=== PATIENT | female | born 1990 | race Caucasian/White ===

== ENCOUNTER 2016-09-12 12:05 | Emergency (ER) | payer OTHER ==
--- NOTE | 2016-09-12 13:55 | ERPHSYRPT ---
- History of Present Illness Time Seen by Provider: 09/12/16 13:45 Source: patient Exam Limitations: no limitations Patient Subjective Stated Complaint: fine rash over arms and chest for two weeks. Triage Nursing Assessment: fine red rash noted to arms and chest Physician History: The patient is a 26-year-old female who complains of a rash that began 2 weeks ago on her foot and ankle that has resolved. She had a rash also on the back of her hand. This is also gotten better. She now states that she has a rash on her sides of her back. She says that her forearms her getting the rash as well. Timing/Duration: week(s) (2), gradual onset, improved Quality: itchy Severity: moderate Location: torso, hands, feet Possible Causes: no cause identified Modifying Factors: Improves With: calamine lotion Allergies/Adverse Reactions: No Known Drug Allergies Allergy (Unverified 09/12/16 13:17) Home Medications: Bupropion HCl 150 mg Sr [Wellbutrin SR 150 MG] 150 mg PO DAILY 09/12/16 [ History] Buspirone HCl [Buspar] 10 mg PO BID 09/12/16 [History] Hx Tetanus, Diphtheria Vaccination/Date Given: No Hx Influenza Vaccination/Date Given: Yes Hx Pneumococcal Vaccination/Date Given: No - Review of Systems Constitutional: No Fever, No Chills Eyes: No Symptoms Ears, Nose, & Throat: No Symptoms Respiratory: No Cough, No Dyspnea Cardiac: No Chest Pain, No Edema, No Syncope Abdominal/Gastrointestinal: No Abdominal Pain, No Nausea, No Vomiting, No Diarrhea Genitourinary Symptoms: No Dysuria Musculoskeletal: No Back Pain, No Neck Pain Skin: Rash Neurological: No Dizziness, No Focal Weakness, No Sensory Changes Psychological: No Symptoms Endocrine: No Symptoms Hematologic/Lymphatic: No Symptoms Immunological/Allergic: No Symptoms All Other Systems: Reviewed and Negative - Past Medical History Pertinent Past Medical History: Yes Psycho-Social History: Anxiety - Past Surgical History Past Surgical History: No - Social History Smoking Status: Never smoker Exposure to second hand smoke: No Drug Use: none Patient Lives Alone: No - Female History Hx Last Menstrual Period: 08/16/16 - Nursing Vital Signs Nursing Vital Signs: Initial Vital Signs Temperature 98.6 F Temperature Source Oral Pulse Rate 93 Respiratory Rate 16 Blood Pressure [Left Arm] 111/62 Blood Pressure [Right Arm] 111/62 Pain Intensity 0 - Physical Exam General Appearance: no apparent distress, alert Eye Exam: PERRL/EOMI, eyes nml inspection Ears, Nose, Throat Exam: normal ENT inspection, pharynx normal, moist mucous membranes Neck Exam: normal inspection, non-tender, supple, full range of motion Respiratory Exam: normal breath sounds, lungs clear, No respiratory distress Cardiovascular Exam: regular rate/rhythm, normal heart sounds Gastrointestinal/Abdomen Exam: soft, mass, No tenderness Pelvic Exam: not done Rectal Exam: not done Back Exam: normal inspection, normal range of motion, No CVA tenderness, No vertebral tenderness Extremity Exam: normal inspection, normal range of motion Neurologic Exam: alert, oriented x 3, cooperative, normal mood/affect, sensation nml, No motor deficits Skin Exam: rash (There is a healed rash to his obvious excoriations on the foot and hand. There is some mild fine rash to the lateral edges of the back. No rashes noted on the forearms.) SpO2 Interpretation: normal SpO2: 98 Oxygen Delivery: Room Air - Departure Time of Disposition: 14:00 Departure Disposition: Home Clinical Impression: Rash Condition: Stable Critical Care Time: No Additional Instructions: You have a rash with the cause is yet to be identified. Take prednisone 60 mg daily for 5 days. Follow up next week with your primary medical doctor if the condition hasn't resolved. Prescriptions: Prednisone 10 mg [Deltasone 10 mg] 60 mg PO UD #30 tablet
[2016-09-12 14:00] VITALS: BP 117/68; PULSE 98
[2016-09-12 14:01] VITALS: O2SAT 98
== END 2016-09-12 14:26 | disposition home or self-care (01) ==
LOC: ED 12:05
DX: R21 Rash and other nonspecific skin eruption (principal)
CPT/HCPCS: 99282

== ENCOUNTER 2017-12-28 16:15 | Emergency (ER) | payer OTHER ==
--- NOTE | 2017-12-28 17:15 | ERPHSYRPT ---
- History of Present Illness Time Seen by Provider: 12/28/17 17:03 Source: patient Exam Limitations: no limitations Patient Subjective Stated Complaint: alert and oriented. able to ambulate to room without problem. has sciatica and has been being treated by chiropractor since may. increased pain . states swelling at lower back. unanable to see any swelling at this time. denies urinary symptoms. able to ambulate with no difficulty. Triage Nursing Assessment: alert and oriented. able to ambulate to room without problem. has sciatica and has been being treated by chiropractor since may. increased pain . states swelling at lower back. unanable to see any swelling at this time. denies urinary symptoms. able to ambulate with no difficulty. Physician History: The patient is a 27-year-old female complaining of right-sided low back pain since May. She has been to see the chiropractor several times with some relief but today it is hurting again. It has been hurting worse for a few days. She denies numbness or tingling. She denies problems with urination or defecation. She is supplied cold to the area with some relief. She was late for an appointment with the nurse practitioner today and was unable to be seen. Timing/Duration: gradual onset, worse, other (7 months) Method of Injury: unknown Quality: aching Back Pain Radiation: buttocks Severity of Pain-Max: moderate Severity of Pain-Current: moderate Modifying Factors: Improves With: cold therapy Associated Symptoms: lower back pain, muscle spasms, No urinary incontinence, No loss of bowel control, No problems urinating, No numbness in legs/feet, No sensory/motor loss Previous symptoms: no prior history Allergies/Adverse Reactions: No Known Drug Allergies Allergy (Unverified 12/28/17 16:50) Home Medications: Buspirone HCl [Buspar] 10 mg PO BID 09/12/16 [History] Amoxicillin 500 mg PO BID 12/28/17 [History] Hx Tetanus, Diphtheria Vaccination/Date Given: No Hx Influenza Vaccination/Date Given: Yes Hx Pneumococcal Vaccination/Date Given: No Immunizations Up to Date: Yes - Review of Systems Constitutional: No Fever, No Chills Eyes: No Symptoms Ears, Nose, & Throat: No Symptoms Respiratory: No Cough, No Dyspnea Cardiac: No Chest Pain, No Edema, No Syncope Abdominal/Gastrointestinal: No Abdominal Pain, No Nausea, No Vomiting, No Diarrhea Genitourinary Symptoms: No Dysuria Musculoskeletal: Back Pain Skin: No Rash Neurological: No Dizziness, No Focal Weakness, No Sensory Changes Psychological: No Symptoms Endocrine: No Symptoms Hematologic/Lymphatic: No Symptoms Immunological/Allergic: No Symptoms All Other Systems: Reviewed and Negative - Past Medical History Pertinent Past Medical History: Yes Neurological History: Other Psycho-Social History: Anxiety Other Medical History: sciatica - Past Surgical History Past Surgical History: Yes - Social History Smoking Status: Never smoker Exposure to second hand smoke: No Drug Use: none Patient Lives Alone: No - Female History Hx Last Menstrual Period: 2 weeks Hx Now: No - Nursing Vital Signs Nursing Vital Signs: Initial Vital Signs Temperature 97.8 F 12/28/17 16:42 Pulse Rate 86 12/28/17 16:42 Respiratory Rate 16 12/28/17 16:42 Blood Pressure 156/80 12/28/17 16:42 O2 Sat by Pulse Oximetry 98 12/28/17 16:42 Pain Scale Pain Intensity [Lower Back] 6 Pain Intensity 6 - Physical Exam General Appearance: no apparent distress, alert Eye Exam: PERRL/EOMI, eyes nml inspection Ears, Nose, Throat Exam: normal ENT inspection Neck Exam: normal inspection, non-tender, supple, full range of motion, No meningismus, No midline tenderness Respiratory Exam: normal breath sounds, lungs clear, No respiratory distress Cardiovascular Exam: regular rate/rhythm, normal heart sounds Gastrointestinal Exam: soft, No tenderness, No mass Pelvic Exam: not done Rectal Exam: not done Back Exam: muscle spasm (lumbar right paraspinous muscle) Extremity Exam: normal inspection, normal range of motion, No calf tenderness, No pedal edema Neurologic Exam: alert, oriented x 3, cooperative, 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 You were given Toradol 60 mg and Decadron 10 mg by IM in the ER. Take Flexeril 5 mg every 8 hours as needed for relief. Apply ice to the area for 10-15 minutes 2-3 times a day as needed. Follow-up with your primary medical doctor as needed. Prescriptions: Cyclobenzaprine HCl [Flexeril] 5 mg PO Q8H PRN PRN #10 tablet PRN Reason: Pain
[2017-12-28] MEDS ORDERED: TORAdol 30 mg Injection IM ONE (17:19)
[2017-12-28] MEDS ORDERED: DECADRON 10MG INJ. IM ONE (17:19)
[2017-12-28] MEDS ORDERED: DECADRON 10MG INJ. ONE (17:22)
[2017-12-28] MEDS ORDERED: TORAdol 30 mg Injection ONE (17:22)
[2017-12-28 17:35] VITALS: BP 113/68; PULSE 97; O2SAT 100
== END 2017-12-28 17:46 | disposition home or self-care (01) ==
LOC: ED 16:15
DX: M62.830 Muscle spasm of back (principal); M54.5 Low back pain
CPT/HCPCS: 96372; 99284; J1100; J1885

== ENCOUNTER 2018-01-27 13:10 | Emergency (ER) | payer OTHER ==
[2018-01-27] MEDS ORDERED: GI COCKTAIL 45 ML (Maalox/Lidocaine) PO ONE (13:43)
[2018-01-27] MEDS ORDERED: XYLOCAINE HCl Viscous ONE (13:57)
[2018-01-27] MEDS ORDERED: MAALOX ES 30 ML UNIT DOSE ONE (13:58)
--- NOTE | 2018-01-27 14:06 | ERPHSYRPT ---
- History of Present Illness Time Seen by Provider: 01/27/18 13:25 Historian: patient Exam Limitations: no limitations Patient Subjective Stated Complaint: abdominal pain to left upper quad and right flank. denies urinary symptoms. non radiating pain. has hx reflux. Triage Nursing Assessment: abdomen soft . reflux x couple of months.. this pain x 2 days. states feels pressure. denies urinary symptoms. denies diarrhea. Physician History: 27 y/o white female presents with left upper quad abd pain intermittently for last several days. she feels bloated and nauseated at times. she has never had abd surgeries. she also has had intermittent right flank pain. denies v/d. pt was placed on voltaren 3 weeks ago by pcp. Timing/Duration: day(s) (several) Quality: aching (left upper quad), fullness, pressure Abdominal Pain Onset Location: LUQ, epigastric Pain Radiation: no radiation Severity of Pain-Max: mild Severity of Pain-Current: mild Modifying Factors: Improves With: nothing Associated Symptoms: back (right flank), nausea, No chest pain, No diaphoresis, No diarrhea, No fatigue, No headache, No heartburn, No loss of appetite, No neck pain, No shortness of breath, No syncope, No vomiting Previous symptoms: no prior history Allergies/Adverse Reactions: No Known Drug Allergies Allergy (Unverified 12/28/17 16:50) Home Medications: Buspirone HCl [Buspar] 10 mg PO BID 09/12/16 [History] Amoxicillin 500 mg PO BID 12/28/17 [History] Hx Tetanus, Diphtheria Vaccination/Date Given: No Hx Influenza Vaccination/Date Given: Yes Hx Pneumococcal Vaccination/Date Given: No - Review of Systems Constitutional: No Symptoms, No Fever, No Chills Eyes: No Symptoms, No Discharge, No Eye Pain, No Vision Changes, No Double Vision Ears, Nose, & Throat: No Symptoms, No Ear Pain, No Nose Congestion, No Throat Pain, No Painful Swallowing, No Stridor Respiratory: No Symptoms, No Cough, No Dyspnea, No Stridor, No Wheezing Cardiac: No Symptoms, No Chest Pain, No Palpitations, No Syncope Abdominal/Gastrointestinal: Abdominal Pain (left upper quad), Nausea, No Vomiting, No Diarrhea, No Constipation Genitourinary Symptoms: Flank Pain (right), No Dysuria, No Frequency, No Hematuria Musculoskeletal: No Neck Pain, No Deformity, No Fall, No Injury Skin: No Symptoms Neurological: No Symptoms, No Dizziness, No Headache Psychological: No Symptoms, No Anxiety, No Depression Endocrine: No Symptoms Hematologic/Lymphatic: No Symptoms Immunological/Allergic: No Symptoms All Other Systems: Reviewed and Negative - Past Medical History Pertinent Past Medical History: Yes Neurological History: Other ENT History: No Pertinent History Cardiac History: No Pertinent History Respiratory History: No Pertinent History Endocrine Medical History: No Pertinent History Musculoskeletal History: No Pertinent History GI Medical History: GERD History: No Pertinent History Psycho-Social History: Anxiety Female Reproductive Disorders: No Pertinent History Other Medical History: sciatica - Past Surgical History Past Surgical History: Yes Neuro Surgical History: No Pertinent History Cardiac: No Pertinent History Respiratory: No Pertinent History Gastrointestinal: No Pertinent History Genitourinary: No Pertinent History Musculoskeletal: No Pertinent History Female Surgical History: No Pertinent History - Social History Smoking Status: Never smoker Exposure to second hand smoke: No Drug Use: none Patient Lives Alone: No - Female History Hx Now: No - Nursing Vital Signs Nursing Vital Signs: Initial Vital Signs Pulse Rate 88 01/27/18 13:24 Respiratory Rate 18 01/27/18 13:24 Blood Pressure 129/78 01/27/18 13:24 O2 Sat by Pulse Oximetry 98 01/27/18 13:24 Pain Scale Pain Intensity 5 - Physical Exam General Appearance: no apparent distress, alert, anxiety Eye Exam: PERRL/EOMI Ears, Nose, Throat Exam: normal ENT inspection, moist mucous membranes Neck Exam: normal inspection, non-tender, supple, full range of motion Respiratory Exam: normal breath sounds, lungs clear, airway intact, No chest tenderness, No respiratory distress, No accessory muscle use, No rhonchi, No wheezing, No stridor Cardiovascular Exam: regular rate/rhythm, normal heart sounds, normal peripheral pulses Gastrointestinal/Abdomen Exam: soft, normal bowel sounds, tenderness (mild left upper quadrant), rebound, No guarding Pelvic Exam: not done Rectal Exam: not done Back Exam: normal inspection, normal range of motion, No CVA tenderness, No vertebral tenderness Extremity Exam: normal inspection, normal range of motion, pelvis stable Neurologic Exam: alert, oriented x 3, cooperative, 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, normal mood/affect, nml cerebellar function, nml station & gait Skin Exam: normal color, warm, dry Lymphatic Exam: No adenopathy SpO2 Interpretation: normal SpO2: 98 Oxygen Delivery: Room Air - Course Nursing assessment & vital signs reviewed: Yes Ordered Tests: Active Orders 24 hr Category Date Time Status Clean Catch Urine Specimen STAT Care 01/27/18 13:43 Active AMYLASE Stat Lab 01/27/18 14:05 Completed CBC W DIFF Stat Lab 01/27/18 14:05 Completed CMP Stat Lab 01/27/18 14:05 Completed HCG,QUALITATIVE URINE Stat Lab 01/27/18 14:05 Completed LIPASE Stat Lab 01/27/18 14:05 Completed UA W/RFX UR CULTURE Stat Lab 01/27/18 14:05 Completed Medication Summary Discontinued Medications Generic Name Dose Route Start Last Admin Trade Name Freq PRN Reason Stop Dose Admin Al Hydrox/Mg Hydrox/Simethicone Confirm 01/27/18 13:58 Maalox Es 30 Ml Unit Dose Administered 01/27/18 13:59 Dose 30 ml .ROUTE .STK-MED ONE Lidocaine HCl Confirm 01/27/18 13:57 Xylocaine Hcl Viscous * Administered 01/27/18 13:58 Dose 15 ml .ROUTE .STK-MED ONE Magnesium Hydroxide 45 ml 01/27/18 13:43 01/27/18 14:03 Gi Cocktail 45 Ml (Maalox/Lidocaine) PO 01/27/18 13:44 45 ml STAT ONE Administration Lab/Rad Data: Laboratory Result Diagrams 01/27/18 14:05 01/27/18 14:05 Laboratory Results 01/27/18 01/27/18 01/27/18 Range/Units 14:05 14:05 14:05 WBC (4.0-10.5) K/mm3 RBC (4.1-5.4) M/mm3 Hgb (12.0-16.0) gm/dl Hct (35-47) % MCV (78-100) fl MCH (26-32) pg MCHC (32-36) g/dl RDW (11.5-14.0) % Plt Count (150-450) K/mm3 MPV (6-9.5) fl Gran % (36.0-66.0) % Eos # (Auto) (0-0.5) Absolute Lymphs (auto) (1.0-4.6) Absolute Monos (auto) (0.0-1.3) Lymphocytes % (24.0-44.0) % Monocytes % (0.0-12.0) % Eosinophils % (0.00-5.0) % Basophils % (0.0-0.4) % Absolute Granulocytes (1.4-6.9) Basophils # (0-0.4) Sodium 139 (137-145) mmol/L Potassium 4.3 (3.5-5.1) mmol/L Chloride 102 (98-107) mmol/L Carbon Dioxide 27 (22-30) mmol/L Anion Gap 14.5 (5-15) MEQ/L BUN 11 (7-17) mg/dL Creatinine 0.63 (0.52-1.04) mg/dL Estimated GFR > 60.0 ML/MIN Glucose 98 (74-106) mg/dL Calcium 10.0 (8.4-10.2) mg/dL Total Bilirubin 0.30 (0.2-1.3) mg/dL AST 15 (14-36) U/L ALT 13 (0-35) U/L Alkaline Phosphatase 50 (38-126) U/L Serum Total Protein 8.0 (6.3-8.2) g/dL Albumin 4.7 (3.5-5.0) g/dL Amylase 69 (30-110) U/L Lipase 54 (23-300) U/L Urine Color COLORLESS (YELLOW) Urine Appearance CLEAR (CLEAR) Urine pH 7.0 (5-6) Ur Specific [place] 1.002 (1.005-1.025) Urine Protein NEGATIVE (Negative) Urine Ketones NEGATIVE (NEGATIVE) Urine Blood NEGATIVE (0-5) Suman/ul Urine Nitrite NEGATIVE (NEGATIVE) Urine Bilirubin NEGATIVE (NEGATIVE) Urine Urobilinogen NEGATIVE (0-1) mg/dL Ur Leukocyte Esterase NEGATIVE (NEGATIVE) Urine WBC (Auto) 0-2 (0-5) /HPF U Epithel Cells (Auto) RARE (FEW) /HPF Urine Mucus (Auto) SLIGHT (NEGATIVE) /HPF Urine Culture Reflexed NO (NO) Urine Glucose NEGATIVE (NEGATIVE) mg/dL Urine HCG, Qual NEGATIVE (Negative) 01/27/18 Range/Units 14:05 WBC 7.0 (4.0-10.5) K/mm3 RBC 4.23 (4.1-5.4) M/mm3 Hgb 12.8 (12.0-16.0) gm/dl Hct 37.9 (35-47) % MCV 89.6 (78-100) fl MCH 30.3 (26-32) pg MCHC 33.8 (32-36) g/dl RDW 12.4 (11.5-14.0) % Plt Count 392 (150-450) K/mm3 MPV 9.0 (6-9.5) fl Gran % 55.0 (36.0-66.0) % Eos # (Auto) 0.24 (0-0.5) Absolute Lymphs (auto) 2.41 (1.0-4.6) Absolute Monos (auto) 0.45 (0.0-1.3) Lymphocytes % 34.7 (24.0-44.0) % Monocytes % 6.5 (0.0-12.0) % Eosinophils % 3.5 (0.00-5.0) % Basophils % 0.3 (0.0-0.4) % Absolute Granulocytes 3.83 (1.4-6.9) Basophils # 0.02 (0-0.4) Sodium (137-145) mmol/L Potassium (3.5-5.1) mmol/L Chloride (98-107) mmol/L Carbon Dioxide (22-30) mmol/L Anion Gap (5-15) MEQ/L BUN (7-17) mg/dL Creatinine (0.52-1.04) mg/dL Estimated GFR ML/MIN Glucose (74-106) mg/dL Calcium (8.4-10.2) mg/dL Total Bilirubin (0.2-1.3) mg/dL AST (14-36) U/L ALT (0-35) U/L Alkaline Phosphatase (38-126) U/L Serum Total Protein (6.3-8.2) g/dL Albumin (3.5-5.0) g/dL Amylase (30-110) U/L Lipase (23-300) U/L Urine Color (YELLOW) Urine Appearance (CLEAR) Urine pH (5-6) Ur Specific [place] (1.005-1.025) Urine Protein (Negative) Urine Ketones (NEGATIVE) Urine Blood (0-5) Suman/ul Urine Nitrite (NEGATIVE) Urine Bilirubin (NEGATIVE) Urine Urobilinogen (0-1) mg/dL Ur Leukocyte Esterase (NEGATIVE) Urine WBC (Auto) (0-5) /HPF U Epithel Cells (Auto) (FEW) /HPF Urine Mucus (Auto) (NEGATIVE) /HPF Urine Culture Reflexed (NO) Urine Glucose (NEGATIVE) mg/dL Urine HCG, Qual (Negative) - Progress Progress: unchanged, re-examined Progress Note: 01/27/18 15:11 pt states she is also taking zantac and protonix. Counseled pt/family regarding: lab results, diagnosis, need for follow-up - Departure Time of Disposition: 15:12 Departure Disposition: Home Clinical Impression: Abdominal pain, Gastritis Condition: Stable Critical Care Time: No Referrals: EDWINA GÓMEZ CRAFT WORKER [Primary Care Provider] - Additional Instructions: avoid fatty, greasy, spicy foods. stop voltaren. follow up with primary doctor for further management including gallbladder ultrasound if indicated.
[2018-01-27 14:15] LABS: BASOPHIL % 0.3 % (0.0-0.4); Basophil (Absolute #) 0.02 (0-0.4); Eosinophil % 3.5 % (0.00-5.0); Eosinophil (Absolute #) 0.24 (0-0.5); Granulocyte Absolute (ANC) 3.83 (1.4-6.9); Hematocrit 37.9 % (35-47); Hemoglobin 12.8 gm/dl (12.0-16.0); Lymphocyte (Absolute #) 2.41 (1.0-4.6); Lymphocytes % 34.7 % (24.0-44.0); Mean Cell Volume 89.6 fl (78-100); Mean Corpuscular Hemoglobin 30.3 pg (26-32); Mean Corpuscular Hgb Concent. 33.8 g/dl (32-36); Monocyte (Absolute #) 0.45 (0.0-1.3); Monocytes % 6.5 % (0.0-12.0); Platelet Count 392 K/mm3 (150-450); Red Blood Count 4.23 M/mm3 (4.1-5.4); Red Cell Distribution Width 12.4 % (11.5-14.0)
[2018-01-27 14:18] LABS: Appearance CLEAR (CLEAR); Bilirubin NEGATIVE (NEGATIVE); Blood NEGATIVE Ery/ul (0-5); Glucose NEGATIVE (NEGATIVE); Ketones NEGATIVE (NEGATIVE); Leukocyte Esterase NEGATIVE (NEGATIVE); Nitrite NEGATIVE (NEGATIVE); Protein,Urine Dip NEGATIVE (Negative); Specific Gravity 1.002 (1.005-1.025); Urobilinogen NEGATIVE mg/dL (0-1)
[2018-01-27 14:33] LABS: ALBUMIN 4.7 g/dL (3.5-5.0); ALKALINE PHOSPHATASE 50 U/L (38-126); AMYLASE 69 U/L (30-110); ANION GAP 14.5 MEQ/L (5-15); BLOOD UREA NITROGEN 11 mg/dL (7-17); CHLORIDE 102 mmol/L (98-107); Carbon Dioxide 27 mmol/L (22-30); Creatinine 1 0.63 mg/dL (0.52-1.04); Glucose 98 mg/dL (74-106); LIPASE 54 U/L (23-300); Potassium 4.3 mmol/L (3.5-5.1); SGOT/AST 15 U/L (14-36); SGPT/ALT 13 U/L (0-35); SODIUM 139 mmol/L (137-145)
[2018-01-27 15:53] VITALS: BP 117/83; PULSE 80; O2SAT 99
== END 2018-01-27 15:50 | disposition home or self-care (01) ==
LOC: ED 13:10
DX: R10.12 Left upper quadrant pain (principal); K29.70 Gastritis, unspecified, without bleeding; R10.13 Epigastric pain; M54.9 Dorsalgia, unspecified; Z79.899 Other long term (current) drug therapy
CPT/HCPCS: 36415; 80053; 81001; 82150; 83690; 84703; 85025; 99283; A9270-GY

== ENCOUNTER 2018-12-18 13:32 | Emergency (ER) | payer OTHER ==
--- NOTE | 2018-12-18 13:37 | ERPHSYRPT ---
- History of Present Illness Time Seen by Provider: 12/18/18 13:37 Source: patient Exam Limitations: no limitations Physician History: 28 y/o white female presents with 3 week h/o coughing. pt coughed so hard last pm she felt a pull and pop sensation left posterolateral rib. pt was tx early in the 3 weeks with antibx. no sig improvement. because pain in the left rib area persists since last pm, she has decided to have evaluation. pt denies cp and denies fever. Timing/Duration: week(s) (3) Cough Quality/Degree: moderate, dry cough Possible Cause: no prior episodes Modifying Factors: Improves With: coughing Associated Symptoms: chest pain/soreness, cough, muscle aches, other (pain in the posterior right chest after feeling a crack on 12/17/2018; finished a Z-pack one week ago without any relief of her symptoms) International travel in last 2 weeks: No Allergies/Adverse Reactions: ketorolac [From Toradol] Allergy (Mild, Verified 12/18/18 14:10) swelliing, rash NSAIDS (Non-Steroidal Anti-Inflamma Allergy (Mild, Verified 12/18/18 14:11) rash, swelling gabapentin Allergy (Verified 12/18/18 14:10) Rash Home Medications: Buspirone HCl [Buspar] 10 mg PO TID 09/12/16 [History] Benzonatate [Tessalon Perle] 1 ea PO TID PRN 12/18/18 [History] Codeine Phosphate/APAP #3 [Tylenol #3 Tablet] 1 tab PO QID PRN 12/18/18 [ History] Hx Tetanus, Diphtheria Vaccination/Date Given: No Hx Influenza Vaccination/Date Given: Yes Hx Pneumococcal Vaccination/Date Given: No - Review of Systems Constitutional: No Symptoms Eyes: No Symptoms Ears, Nose, & Throat: No Symptoms Respiratory: Cough, No Dyspnea, No Dyspnea on Exertion (SELF), No Wheezing Cardiac: No Chest Pain, No Edema, No Syncope Abdominal/Gastrointestinal: No Abdominal Pain, No Nausea, No Vomiting, No Diarrhea Genitourinary Symptoms: No Dysuria Musculoskeletal: Back Pain, No Neck Pain, No Fall, No Joint Swelling, No Myalgias Skin: No Rash Neurological: No Dizziness, No Focal Weakness, No Sensory Changes Psychological: No Symptoms Endocrine: No Symptoms All Other Systems: Reviewed and Negative - Past Medical History Pertinent Past Medical History: Yes Neurological History: No Pertinent History ENT History: No Pertinent History Cardiac History: No Pertinent History Respiratory History: No Pertinent History Endocrine Medical History: No Pertinent History Musculoskeletal History: No Pertinent History GI Medical History: GERD History: No Pertinent History Psycho-Social History: Anxiety Female Reproductive Disorders: No Pertinent History Other Medical History: sciatica - Past Surgical History Past Surgical History: Yes Neuro Surgical History: No Pertinent History Cardiac: No Pertinent History Respiratory: No Pertinent History Gastrointestinal: No Pertinent History Genitourinary: No Pertinent History Musculoskeletal: No Pertinent History Female Surgical History: No Pertinent History - Social History Smoking Status: Never smoker Exposure to second hand smoke: No Drug Use: none Patient Lives Alone: No - Nursing Vital Signs Nursing Vital Signs: Initial Vital Signs Temperature 98.3 F 12/18/18 13:57 Pulse Rate 93 H 12/18/18 13:57 Respiratory Rate 20 12/18/18 13:57 Blood Pressure 105/76 12/18/18 13:57 O2 Sat by Pulse Oximetry 100 12/18/18 13:57 Pain Scale Pain Intensity 8 - Physical Exam General Appearance: no apparent distress, alert Eye Exam: PERRL/EOMI, eyes nml inspection Ears, Nose, Throat Exam: normal ENT inspection, TMs normal, pharynx normal, moist mucous membranes Neck Exam: normal inspection, non-tender, supple, full range of motion Respiratory Exam: normal breath sounds, lungs clear, No respiratory distress Cardiovascular Exam: regular rate/rhythm, normal heart sounds Gastrointestinal/Abdomen Exam: soft, No tenderness Back Exam: normal inspection, point tenderness, No CVA tenderness, No vertebral tenderness, No rash Extremity Exam: normal inspection, normal range of motion Neurologic Exam: alert, oriented x 3, cooperative, normal mood/affect, sensation nml, No motor deficits Skin Exam: normal color, warm, dry, No rash Lymphatic Exam: No adenopathy - Course Nursing assessment & vital signs reviewed: Yes Ordered Tests: Active Orders 24 hr Category Date Time Status CHEST 2 VIEWS (PA AND LAT) Stat Exams 12/18/18 Ordered - Progress Progress: unchanged Air Movement: good Progress Note: 12/18/18 15:16 cxr-no acute process. Blood Culture(s) Obtained: No Antibiotics given: No Counseled pt/family regarding: diagnosis, need for follow-up, rad results - Departure Departure Disposition: Home Clinical Impression: Bronchitis Condition: Stable Critical Care Time: No Referrals: EDWINA GÓMEZ NP [Primary Care Provider] - Additional Instructions: follow up with primary doctor for persistent symptoms. Prescriptions: Hydrocodone Bit/Acetaminophen [Hydrocodone-Acetaminophen Soln] 10 ml PO Q6H # 120 ml Prednisone 10 mg [Deltasone 10 mg] 10 mg PO TID #12 tablet
[2018-12-18 14:08] VITALS: BP 105/76; PULSE 93; O2SAT 100
--- NOTE | 2018-12-18 20:50 | XRAY ---
Indication: Cough. Comparison: None PA/lateral chest demonstrates normal heart, lungs, and bony thorax.
== END 2018-12-18 15:28 | disposition home or self-care (01) ==
LOC: ED 13:32
DX: J40 Bronchitis, not specified as acute or chronic (principal)
CPT/HCPCS: 71046; 99283

== ENCOUNTER 2020-01-01 19:54 | Emergency (ER) | payer OTHER ==
[2020-01-01 20:18] VITALS: O2SAT 100
[2020-01-01] MEDS ORDERED: DILAUDID 2 MG INJECTION IM STA (21:16)
[2020-01-01] MEDS ORDERED: TENIVAC VIAL IM ONE (21:17)
[2020-01-01] MEDS ORDERED: Hydromorphone 1 mg/ml Ampule ONE (21:17)
[2020-01-01] MEDS ORDERED: Adacel Vial IM ONE (21:17)
--- NOTE | 2020-01-01 21:23 | ERPHSYRPT ---
- History of Present Illness Source: patient Exam Limitations: no limitations Patient Subjective Stated Complaint: pt reports getting left 2nd finger caught in dog's leash while out dog walking causing abrasion to finger at 2nd joint and pain to that finger and area proximal to finger on palm Triage Nursing Assessment: a/ox4; resp non labored and regular; skin p/w/d; abrasion noted to left 2nd finger on palmar aspect that is not bleeding Physician History: 29 yo wf w L hand/2-3-4th digit pain after getting leash wrapped around hand while restraining dog. Pt is R handed and denies other/previous injuries. Occurred: just prior to arrival Method of Injury: other (Dog leash wrapped around hand) Quality: constant Severity of Pain-Max: moderate Severity of Pain-Current: moderate Extremities Pain Location: hand: right, 2nd finger: right, 3rd finger: right, 4th finger: right Modifying Factors: Improves With: movement Associated Symptoms: none Allergies/Adverse Reactions: ketorolac [From Toradol] Allergy (Mild, Verified 12/18/18 14:10) swelliing, rash NSAIDS (Non-Steroidal Anti-Inflamma Allergy (Mild, Verified 12/18/18 14:11) rash, swelling gabapentin Allergy (Verified 12/18/18 14:10) Rash Home Medications: Buspirone HCl [Buspar] 10 mg PO TID 09/12/16 [History] Benzonatate [Tessalon Perle] 1 ea PO TID PRN 12/18/18 [History] Codeine Phosphate/APAP #3 [Tylenol #3 Tablet] 1 tab PO QID PRN 12/18/18 [History] Hx Tetanus, Diphtheria Vaccination/Date Given: Yes Hx Influenza Vaccination/Date Given: No Hx Pneumococcal Vaccination/Date Given: No Immunizations Up to Date: Yes Travel Risk - International Travel Have you traveled outside of the country in past 3 weeks: No - Coronavirus Screening Are you exhibiting any of the following symptoms?: No Close contact with a COVID-19 positive Pt in past 14-21 Days: No - Review of Systems Constitutional: No Symptoms Eyes: No Symptoms Ears, Nose, & Throat: No Symptoms Respiratory: No Symptoms Cardiac: No Symptoms Abdominal/Gastrointestinal: No Symptoms Genitourinary Symptoms: No Symptoms Skin: No Symptoms Neurological: No Symptoms Psychological: No Symptoms Endocrine: No Symptoms Hematologic/Lymphatic: No Symptoms Immunological/Allergic: No Symptoms All Other Systems: Reviewed and Negative - Past Medical History Pertinent Past Medical History: Yes Neurological History: No Pertinent History ENT History: No Pertinent History Cardiac History: No Pertinent History Respiratory History: No Pertinent History Endocrine Medical History: No Pertinent History Musculoskeletal History: Other GI Medical History: GERD History: No Pertinent History Psycho-Social History: Anxiety, Bipolar Female Reproductive Disorders: No Pertinent History Other Medical History: sciatica - Past Surgical History Past Surgical History: Yes Neuro Surgical History: No Pertinent History Cardiac: No Pertinent History Respiratory: No Pertinent History Gastrointestinal: No Pertinent History Genitourinary: No Pertinent History Musculoskeletal: No Pertinent History Female Surgical History: No Pertinent History - Social History Smoking Status: Never smoker Exposure to second hand smoke: No Drug Use: none Patient Lives Alone: No - Female History Hx Now: No - Nursing Vital Signs Nursing Vital Signs: Initial Vital Signs Temperature 98.1 F 01/01/20 20:10 Pulse Rate 83 01/01/20 20:10 Respiratory Rate 18 01/01/20 20:10 Blood Pressure 149/106 01/01/20 20:10 O2 Sat by Pulse Oximetry 100 01/01/20 20:10 Pain Scale Pain Intensity 7 - Physical Exam General Appearance: no apparent distress Eyes, Ears, Nose, Throat Exam: normal ENT inspection Neck Exam: normal inspection, non-tender, supple, full range of motion, No Brudzinski, No Kernig's, No meningismus (C-spine nttp) Cardiovascular/Respiratory Exam: normal breath sounds, regular rate/rhythm, heart sounds normal, no respiratory distress Abdominal Exam: non-tender, soft Back Exam: normal inspection, normal range of motion, No CVA tenderness Shoulder Exam: normal inspection, non-tender, no evidence of injury Elbow/Forearm Exam: normal inspection, non-tender, no evidence of injury Wrist Exam: normal inspection, non-tender, no evidence of injury, normal ROM Hand Exam: bone tenderness (L hand ttp 2,3,4th MCP joints/Mild edema/Superficial abrasion ventral PIP joint/Good radial pulse, distal sensation, and capillary return) Neuro/Tendon Exam: normal sensation, normal motor functions, normal tendon functions, responds to pain, no evidence tendon injury Mental Status Exam: alert, oriented x 3, cooperative Skin Exam: normal color, warm, dry SpO2 Interpretation: normal SpO2: 100 O2 Delivery: Room Air - Radiology Exams Hand X-ray Interpretation: Interpreted by me (No fx or dislocation) Ordered Tests: Active Orders 24 hr Category Date Time Status Reddy Bandage Application -[facility] STAT Care 01/01/20 21:43 Completed HAND (MINIMUM 3 VIEWS) Stat Exams 01/01/20 20:44 Taken Medication Summary Discontinued Medications Generic Name Dose Route Start Last Admin Trade Name Freq PRN Reason Stop Dose Admin Diphtheria/Tetanus/Acell Pertussis 0.5 ml 01/01/20 21:17 01/01/20 21:22 Adacel Vial IM 01/01/20 21:18 0.5 ml .ONCE ONE Administration Hydromorphone HCl 0.5 mg 01/01/20 21:16 01/01/20 21:22 Dilaudid 2 Mg Injection IM 01/01/20 21:17 0.5 mg ONCE STA Administration Hydromorphone HCl Confirm 01/01/20 21:17 Hydromorphone 1 Mg/Ml Ampule Administered 01/01/20 21:18 Dose 1 mg .ROUTE .STK-MED ONE Tetanus/Diphtheria Toxoids Adsorbed Confirm 01/01/20 21:17 Tenivac Vial Administered 01/01/20 21:18 Dose 0.5 ml IM .STK-MED ONE - Progress Progress: improved Progress Note: 01/01/20 21:28 Tdap/0.5 IM Dilaudid Reddy wrap L hand per nurse/NVI Counseled pt/family regarding: diagnosis, need for follow-up, rad results - Departure Departure Disposition: Home Clinical Impression: Contusion, hand Condition: Stable Critical Care Time: No Referrals: EDWINA GÓMEZ [employer] OPER[employer] [Primary Care Provider] - Instructions: Contusion (DC) Additional Instructions: Ice to hand for 12-24 hours Reddy wrap for 2-3 days Follow up with family MD for continued pain Return to ER for increased pain/Redness/Swelling Prescriptions: Hydrocodone/APAP 5-325 Tab^^^ [[place] 5-325 Tablet^^^] 1 each PO Q4HPRN PRN #6 tablet MDD 6 PRN Reason: Pain
[2020-01-01 21:35] VITALS: BP 134/74; PULSE 84
--- NOTE | 2020-01-02 19:55 | XRAY ---
Exam: 3 views the left hand from 01/01/2020. Comparison: None. Indication: Trauma, patient states dog leash got wrapped around left hand during a dogfight. Findings: AP, oblique, and lateral radiographs of the left hand were obtained. I see no acute fracture or dislocation. The joint spaces appear unremarkable. No radiopaque soft tissue foreign body is seen. No other focal bone lesion is evident. Impression: 1. No acute left hand fracture or dislocation is seen.
== END 2020-01-01 21:44 | disposition home or self-care (01) ==
LOC: ED 19:54
DX: S60.222A Contusion of left hand, initial encounter (principal); W23.1XXA Caught, crushed, jammed, or pinched between stationary objects, initial encounter; Y93.K1 Activity, walking an animal; Y92.9 Unspecified place or not applicable
CPT/HCPCS: 73130; 90471; 90714; 90715; 96372; 99284; J1170